=== PATIENT | male | born 1970 | race African-American/Black ===

== ENCOUNTER 2024-10-26 08:48 | Inpatient (IN) | payer OTHER ==
[2024-10-26 09:28] VITALS: BMI 27.2
[2024-10-26] MEDS ORDERED: ONDANSETRON *ODT* 4 MG TABLET SL PRN (10:17)
[2024-10-26] MEDS ORDERED: NALOXONE (NARCAN) HCL 4 MG/0.1 ML SPRAY NS PRN (10:17)
[2024-10-26] MEDS ORDERED: NICOTINE POLACRILEX 2 MG GUM BUC PRN (10:17)
[2024-10-26] MEDS ORDERED: BENZOCAINE/MENTHOL (CHLORASEPTIC ) LOZENGE MM PRN (10:17)
[2024-10-26] MEDS ORDERED: ACETAMINOPHEN 325 MG TABLET (FP) PO PRN (10:17)
[2024-10-26] MEDS ORDERED: DICYCLOMINE HCL 10 MG CAPSULE PO PRN (10:17)
[2024-10-26] MEDS ORDERED: IBUPROFEN 600 MG TABLET (FP) PO PRN (10:17)
[2024-10-26] MEDS ORDERED: BISMUTH SUBSALICYLATE 262 MG/15 ML BTL PO PRN (10:17)
[2024-10-26] MEDS ORDERED: MAG HYDROX/AL HYDROX/SIMETH 30 ML UNIT-DOSE CUP PO PRN (10:17)
[2024-10-26] MEDS ORDERED: guaiFENesin 600 MG TABLET.ER (FP) PO PRN (10:17)
[2024-10-26] MEDS ORDERED: hydrOXYzine PAMOATE 25 MG CAPSULE (FP) PO PRN (10:17)
[2024-10-26] MEDS ORDERED: MAGNESIUM HYDROX 2400MG/30ML ORAL SUSPENSION 30 ML CUP PO PRN (10:17)
[2024-10-26] MEDS ORDERED: IBUPROFEN 400 MG TABLET (FP) PO PRN (10:17)
[2024-10-26] MEDS ORDERED: BENZONATATE 200 MG CAPSULE PO PRN (10:17)
[2024-10-26] MEDS ORDERED: LOPERAMIDE HCL 2 MG CAPSULE PO PRN (10:17)
[2024-10-26] MEDS ORDERED: POLYETHYLENE GLYCOL (HEALTHYLAX) 3350 17 GM PACKET PO PRN (10:17)
[2024-10-26] MEDS ORDERED: NICOTINE 14 MG/24 HOURS TOPICAL PATCH TD ONE (10:55)
[2024-10-26] MEDS: NICOTINE 14 MG/24 HOURS TOPICAL PATCH TD SCH (10:56)
[2024-10-26] MEDS: NALTREXONE HCL 50 MG TABLET PO ONE (10:56)
[2024-10-26] MEDS: amLODIPine BESYLATE 5 MG TABLET (FP) PO SCH (12:55)
[2024-10-26 19:08] LABS: HCV DIAGNOSTIC IN-HOUSE W/RFLX NON-REACTIVE (NONREACTIVE)
[2024-10-26 19:09] LABS: HIV INTERPRETATION NEGATIVE (NEGATIVE)
[2024-10-26] MEDS: THIAMINE 100 MG TABLET PO SCH (22:13)
[2024-10-26] MEDS: MIRTAZAPINE 15 MG TABLET (FP) PO SCH (22:13)
[2024-10-26] MEDS: MELATONIN 5 MG TABLETS PO SCH (22:13)
[2024-10-27] MEDS: PRENATAL VITAMINS W/ FOLIC ACID TABLET (FP) PO SCH (10:18)
[2024-10-27] MEDS: NALTREXONE HCL 50 MG TABLET PO SCH (10:19)
[2024-10-27 15:02] LABS: HEMATOCRIT 40.7 % (40.1-51.0); HEMOGLOBIN 13.8 g/dL (13.7-17.5); MCHC 33.9 g/dl (32.3-36.5); MEAN CELL VOLUME 106.5 fl (79.0-92.2); MEAN PLT VOLUME 11.7 fl (9.4-12.4); PLATELET COUNT 239 x10^3/uL (163-337)
[2024-10-27 15:20] LABS: ALBUMIN 3.3 g/dl (3.4-5.0); BILIRUBIN,TOTAL 2.4 mg/dL (0.2-1); BLOOD UREA NITROGEN 7.5 mg/dL (7-18); TOT PROT 7.7 g/dl (6.4-8.2)
[2024-10-27 15:22] LABS: CALCIUM 9.9 mg/dL (8.5-10.1)
[2024-10-27 15:23] LABS: CREATININE 1.1 mg/dL (0.55-1.3)
[2024-10-27] MEDS: METHOCARBAMOL 500 MG TABLET PO PRN (21:37)
[2024-10-27] MEDS: SUVOREXANT 10 MG TABLET PO PRN (21:44)
[2024-10-28 09:07] VITALS: RESP 18
[2024-10-28 13:57] VITALS: BP 139/98; PULSE 98; TEMP 97.5
== END 2024-10-28 15:41 | disposition other institution (70) | DRG 774 ==
LOC: YASAS 08:48 → Y3N 11:00
PROVIDERS: ADMIT Allergy & Immunology; ATTEND Allergy & Immunology
PROC: HZ2ZZZZ Detoxification Services for Substance Abuse Treatment (ICD-10-PCS; principal; 2024-10-26)
DX: F10.20 Alcohol dependence, uncomplicated (principal); F14.20 Cocaine dependence, uncomplicated; F12.20 Cannabis dependence, uncomplicated; G47.00 Insomnia, unspecified; R03.0 Elevated blood-pressure reading, without diagnosis of hypertension
CPT/HCPCS: 36415; 80053; 80305; 80307; 85027; 86780; 86803; 87389; 87811; 93005; 93010

== ENCOUNTER 2024-10-28 14:44 | Inpatient (IN) | payer OTHER ==
[2024-10-28] MEDS ORDERED: LOPERAMIDE HCL 2 MG CAPSULE PO PRN (17:49)
[2024-10-28] MEDS ORDERED: NICOTINE POLACRILEX 2 MG LOZENGE BC PRN (17:49)
[2024-10-28] MEDS ORDERED: guaiFENesin 600 MG TABLET.ER (FP) PO PRN (17:49)
[2024-10-28] MEDS ORDERED: METHOCARBAMOL 500 MG TABLET PO PRN (17:49)
[2024-10-28] MEDS ORDERED: POLYETHYLENE GLYCOL (HEALTHYLAX) 3350 17 GM PACKET PO PRN (17:49)
[2024-10-28] MEDS ORDERED: BENZONATATE 200 MG CAPSULE PO PRN (17:49)
[2024-10-28] MEDS ORDERED: ACETAMINOPHEN 325 MG TABLET (FP) PO PRN (17:49)
[2024-10-28] MEDS ORDERED: MAG HYDROX/AL HYDROX/SIMETH 30 ML UNIT-DOSE CUP PO PRN (17:49)
[2024-10-28] MEDS ORDERED: MAGNESIUM HYDROX 2400MG/30ML ORAL SUSPENSION 30 ML CUP PO PRN (17:49)
[2024-10-28] MEDS ORDERED: NALOXONE HCL 0.4 MG/ML VIAL IVPUSH PRN (17:49)
[2024-10-28] MEDS ORDERED: BENZOCAINE/MENTHOL (CHLORASEPTIC ) LOZENGE MM PRN (17:49)
[2024-10-28] MEDS ORDERED: NALOXONE (NARCAN) HCL 4 MG/0.1 ML SPRAY NS PRN (17:49)
[2024-10-28] MEDS ORDERED: IBUPROFEN 400 MG TABLET (FP) PO PRN (17:49)
[2024-10-28] MEDS: MELATONIN 5 MG TABLETS PO SCH (21:33)
[2024-10-28] MEDS: THIAMINE 100 MG TABLET PO SCH (21:33)
[2024-10-29] MEDS: PRENATAL VITAMINS W/ FOLIC ACID TABLET (FP) PO SCH (09:50)
[2024-10-29] MEDS: NICOTINE POLACRILEX 2 MG GUM BUC PRN (09:51)
[2024-10-30] MEDS: hydrOXYzine PAMOATE 25 MG CAPSULE (FP) PO PRN (21:22)
[2024-11-04 11:32] LABS: HEMATOCRIT 42.4 % (40.1-51.0); HEMOGLOBIN 13.8 g/dL (13.7-17.5); MCHC 32.5 g/dl (32.3-36.5); MEAN CELL VOLUME 106.5 fl (79.0-92.2); MEAN PLT VOLUME 11.7 fl (9.4-12.4); PLATELET COUNT 250 x10^3/uL (163-337)
[2024-11-04 11:42] LABS: POTASSIUM 4.1 mmol/L (3.5-5.1)
[2024-11-04 11:54] LABS: BLOOD UREA NITROGEN 8.5 mg/dL (7-18); CALCIUM 9.9 mg/dL (8.5-10.1)
[2024-11-04 11:55] LABS: ALBUMIN 3.5 g/dl (3.4-5.0); MAGNESIUM 2.3 mg/dL (1.8-2.4)
[2024-11-04 11:58] LABS: CREATININE 1.1 mg/dL (0.55-1.3)
[2024-11-04 11:59] LABS: BILIRUBIN,TOTAL 0.4 mg/dL (0.2-1); TOT PROT 7.9 g/dl (6.4-8.2)
[2024-11-16] MEDS: IBUPROFEN 600 MG TABLET (FP) PO PRN (19:28)
[2024-11-25 06:24] VITALS: BP 95/60; PULSE 86; RESP 16; TEMP 97.5
== END 2024-11-25 08:51 | disposition home or self-care (01) | DRG 772 ==
LOC: YASAS 14:44 → Y3E 14:47
PROVIDERS: ADMIT Psychiatry & Neurology Pain Medicine; ATTEND Psychiatry & Neurology Pain Medicine
PROC: HZ42ZZZ Group Counseling for Substance Abuse Treatment, Cognitive-Behavioral (ICD-10-PCS; principal; 2024-10-28)
DX: F10.20 Alcohol dependence, uncomplicated (principal); F14.20 Cocaine dependence, uncomplicated; F12.20 Cannabis dependence, uncomplicated; F17.210 Nicotine dependence, cigarettes, uncomplicated; G47.00 Insomnia, unspecified; D53.1 Other megaloblastic anemias, not elsewhere classified; R03.0 Elevated blood-pressure reading, without diagnosis of hypertension; R79.89 Other specified abnormal findings of blood chemistry
CPT/HCPCS: 36415; 80053; 82140; 82652; 82962; 83735; 85027